=== PATIENT | male | born 1965 ===

== ENCOUNTER → 2016-12-29 | Outpatient (CLI) | payer OTHER ==
[2016-10-22 17:45] VITALS: BP 130/72
[~2016-12-29] MED LIST: ALPR0.5T PO; AMOX875T PO; DICL25CA PO; IOHEXOL 240 MG/ML 50ML VIAL. ONE; IOHEXOL 300 MG/ML 75 ML VIAL. IV ONE; TRAM100C2 PO
--- NOTE | 2016-12-29 11:24 | RAD ---
Indication lower abdominal discomfort. Axial images through the abdomen and pelvis were obtained. Both oral and IV contrast were administered. Approximately 75 cc of Omnipaque 300 was administered intravenously. No prior CT imaging of the abdomen or pelvis is available. The lung bases are clear. The liver and spleen appear essentially unremarkable. There is a probable small cyst in the liver measuring approximately 6 mm in greatest dimension. The gallbladder is grossly normal. No pancreatic adrenal or renal anomalies are seen. A few lymph nodes are seen in the retroperitoneum. These are probably incidental. A definite acute finding in the abdomen is not seen. There is moderately extensive diverticular disease associated with the sigmoid colon. Extending over approximately a 7 cm segment of the mid sigmoid colon are surrounding inflammatory changes in the mesentery. The findings are compatible with diverticulitis. An underlying mass is not seen but if colonoscopy has not been performed recently this should be considered. A discrete abscess amenable to drainage is not seen. Additional significant finding in the pelvis is not seen. There are occasional sclerotic foci in the pelvis likely reflecting bone islands. There are some degenerative changes about the left hip. AVN is not excluded. IMPRESSION: Inflammatory changes surrounding the sigmoid colon compatible with diverticulitis. If colonoscopy has not been recently performed this should be considered. PQRS Compliance Statement: One or more of the following individualized dose reduction techniques were utilized for this examination: 1. Automated exposure control 2. Adjustment of the mA and/or kV according to patient size 3. Use of iterative reconstruction technique
== END | disposition home or self-care (01) ==
LOC: CT 09:45
PROVIDERS: ATTEND Physician Assistant Medical
DX: K57.90 Diverticulosis of intestine, part unspecified, without perforation or abscess without bleeding (principal); Z87.891 Personal history of nicotine dependence
CPT/HCPCS: 74177; Q9966; Q9967

== ENCOUNTER 2017-08-17 01:25 | Inpatient (IN) | payer OTHER ==
[~2017-08-17] VITALS: Ht 180.3 cm; Wt 121.7 kg
[~2017-08-17 01:25] MED LIST changes: -IOHEXOL 240 MG/ML 50ML VIAL. ONE; -IOHEXOL 300 MG/ML 75 ML VIAL. IV ONE
--- NOTE | 2017-08-17 01:49 | ED.ADGEN ---
Past History Past Medical History: Other Past Surgical History: Other Alcohol Use: Occasionally Drug Use: Marijuana Adult General Chief Complaint Chief Complaint " I been hurting down in my gut for about 3 weeks.. now.. at first I get this recurrent abscess on my scrotum.. but they gave me Bactrim.. I took it .. and the abscess or cyst went away.. but then I started getting pain down here in my lower abd. on the Lt. ... I ve been seeing Dr. Herrmann ..up stairs.. and he said I was probably going to have to get a CT... ".." But the pain got so bad tonight...." HPI HPI Patient is a 51 year old male who presents with present with Lt lower quadrant pain has been intermittent for the last 3 weeks however the last 48 hours patient has been, persistent and not relieved. Patient denies any history of previous episodes of colitis, Crohn's, or diverticulitis. Patient has never had a CT of abdomen or colonoscopy. Today patient has been nauseated and any movement or palpation of left lower quadrant causes pain. Patient states just walking causes pain in left lower quadrant. Patient denies any history of immunosuppression. Patient denies any ingestion of bad food. Patient denies any contact with reptiles, poultry, or ill animals. No recent travel. Review of Systems Review of Systems Constitutional: Hx of fever or chills [] Eyes: Denies change in visual acuity, redness, or eye pain [] HENT: Denies nasal congestion or sore throat [] Respiratory: Denies cough or shortness of breath [] Cardiovascular: No additional information not addressed in HPI [] GI: Hx. abdominal pain, nausea. Denies, vomiting, some watery diarrhea x 3 : Denies dysuria or hematuria [] Musculoskeletal: Denies back pain or joint pain [] Integument: Denies rash or skin lesions [] Neurologic: Denies headache, focal weakness or sensory changes [] Endocrine: Denies polyuria or polydipsia [] All other systems were reviewed and found to be within normal limits, except as documented in this note. Family History Family History Non-contributory - no family hx colitis/ Crohn's Current Medications Current Medications Current Medications Medications (Trade) Dose Ordered Sig/Luis Start Time Stop Time Status Last Admin Dose Admin Albuterol Sulfate (Ventolin) 2.5 mg PRN QID PRN 08/17/17 05:00 08/17/17 22:30 DC Ceftriaxone Sodium (Rocephin Im) 1 gm 1X ONCE 08/17/17 02:15 08/17/17 02:16 DC 08/17/17 02:59 1 GM Famotidine (Pepcid Vial) 20 mg 1X ONCE 08/17/17 02:15 08/17/17 02:16 DC 08/17/17 02:59 20 MG Info (Do NOT chart on this entry -- for MONITORING) 1 each PRN DAILY PRN 08/17/17 02:15 08/17/17 22:30 DC Iohexol (Omnipaque 240 Mg/ml) 50 ml STK-MED ONCE 08/17/17 02:11 08/17/17 02:12 DC Iohexol (Omnipaque 300 Mg/ml) 75 ml 1X ONCE 08/17/17 02:15 08/17/17 02:16 DC 08/17/17 03:25 75 ML Metronidazole 100 ml @ 100 mls/hr ONCE ONCE 08/17/17 02:15 08/17/17 03:14 DC 08/17/17 02:58 100 MLS/HR Morphine Sulfate (Morphine 10mg Syringe) 10 mg PRN QID PRN 08/17/17 05:00 08/17/17 22:30 DC 08/17/17 21:41 10 MG Ondansetron HCl (Zofran) 4 mg PRN Q4HRS PRN 08/17/17 05:00 08/17/17 22:30 DC Sodium Chloride 1,000 ml @ 1,000 mls/hr Q1H 08/17/17 02:00 08/17/17 02:59 DC 08/17/17 02:58 1,000 MLS/HR See nursing for home medications Allergies Allergies Allergies Coded Allergies Type Severity Reaction Last Updated Verified No Known Drug Allergies 12/20/13 No Physical Exam Physical Exam Constitutional:in acute distress, non-toxic appearance. [] HENT: Normocephalic, atraumatic, bilateral external ears normal, oropharynx moist, no oral exudates, nose normal. [] Eyes: PERRLA, EOMI, conjunctiva normal, no discharge. [] Neck: Normal range of motion, no tenderness, supple, no stridor. [] Cardiovascular:Heart rate regular rhythm, no murmur [] Lungs & Thorax: Bilateral breath sounds clear to auscultation [] Abdomen: Bowel sounds hyperactive, soft, lower quadrant tenderness, rebound to left lower quadrant, scrotal scarring-recurrent abscess, no masses, no pulsatile masses. [] Left gluteal cellulitis Skin: Warm, dry, no erythema, no rash. [] Back: No tenderness, no CVA tenderness. [] Extremities: No tenderness, no cyanosis, no clubbing, ROM intact, no edema. Positive psoas sign and obturator sign on left Neurologic: Alert and oriented X 3, normal motor function, normal sensory function, no focal deficits noted. [] Psychologic: Affect anxious, judgement normal, mood normal. [] Current Patient Data Vital Signs Vital Signs Date Time Temp Pulse Resp B/P (MAP) Pulse Ox O2 Delivery O2 Flow Rate FiO2 08/17/17 05:00 90 16 103/56 (72) 96 Room Air 08/17/17 04:00 98.9 Lab Results Laboratory Tests Test 08/17/17 02:05 08/17/17 03:10 White Blood Count 15.0 x10^3/uL (4.0-11.0) H Red Blood Count 4.88 x10^6/uL (4.30-5.70) Hemoglobin 14.3 g/dL (13.0-17.5) Hematocrit 41.3 % (39.0-53.0) Mean Corpuscular Volume 85 fL (79-100) Mean Corpuscular Hemoglobin 29 pg (25-35) Mean Corpuscular Hemoglobin Concent 35 g/dL (31-37) Red Cell Distribution Width 13.5 % (11.5-14.5) Platelet Count 404 x10^3/uL (140-400) H Neutrophils (%) (Auto) 75 % (31-73) H Lymphocytes (%) (Auto) 12 % (24-48) L Monocytes (%) (Auto) 11 % (0-9) H Eosinophils (%) (Auto) 1 % (0-3) Basophils (%) (Auto) 1 % (0-3) Neutrophils # (Auto) 11.3 x10^3uL (1.8-7.7) H Lymphocytes # (Auto) 1.8 x10^3/uL (1.0-4.8) Monocytes # (Auto) 1.7 x10^3/uL (0.0-1.1) H Eosinophils # (Auto) 0.2 x10^3/uL (0.0-0.7) Basophils # (Auto) 0.1 x10^3/uL (0.0-0.2) Segmented Neutrophils % 74 % (35-66) H Band Neutrophils % 2 % (0-9) Lymphocytes % 14 % (24-48) L Monocytes % 7 % (0-10) Eosinophils % 2 % (0-5) Basophils % 1 % (0-3) Platelet Estimate Increased (ADEQUATE) Prothrombin Time 10.9 SEC (9.4-11.4) Prothrombin Time INR 1.1 (0.9-1.1) PTT 27 SEC (23-33) Sodium Level 137 mmol/L (136-145) Potassium Level 3.5 mmol/L (3.5-5.1) Chloride Level 101 mmol/L (98-107) Carbon Dioxide Level 27 mmol/L (21-32) Anion Gap 9 (6-14) Blood Urea Nitrogen 10 mg/dL (8-26) Creatinine 1.0 mg/dL (0.7-1.3) Estimated GFR (Cockcroft-Gault) 79.4 Glucose Level 113 mg/dL (70-99) H Calcium Level 8.8 mg/dL (8.5-10.1) Total Bilirubin 0.7 mg/dL (0.2-1.0) Direct Bilirubin 0.3 mg/dL (0.0-0.2) H Aspartate Amino Transferase (AST) 20 U/L (15-37) Alanine Aminotransferase (ALT) 28 U/L (16-63) Alkaline Phosphatase 89 U/L (46-116) Total Protein 8.1 g/dL (6.4-8.2) Albumin 2.8 g/dL (3.4-5.0) L Amylase Level 28 U/L (25-115) Lipase 80 U/L (73-393) Prostate Specific Antigen 0.29 ng/ml (0.00-4.00) Urine Collection Type Unknown Urine Color Yellow Urine Clarity Clear Urine pH 5.0 Urine Specific [place] 1.020 Urine Protein Trace (NEG-TRACE) Urine Glucose (UA) Neg mg/dL (NEG) Urine Ketones (Stick) Trace mg/dL (NEG) Urine Blood Trace (NEG) Urine Nitrite Neg (NEG) Urine Bilirubin Neg (NEG) Urine Urobilinogen Dipstick 0.2 mg/dL (0.2 mg/dL) Urine Leukocyte Esterase Neg (NEG) Urine RBC 0 /HPF (0-2) Urine WBC 1-4 /HPF (0-4) Urine Squamous Epithelial Cells Few /LPF Urine Bacteria Few /HPF (0-FEW) Urine Opiates Screen Neg (NEG) Urine Methadone Screen Neg (NEG) Urine Barbiturates Neg (NEG) Urine Phencyclidine Screen Neg (NEG) Urine Amphetamine/Methamphetamine Neg (NEG) Urine Benzodiazepines Screen Neg (NEG) Urine Cocaine Screen Neg (NEG) Urine Cannabinoids Screen Neg (NEG) Urine Ethyl Alcohol Neg (NEG) EKG EKG My interpretation EKG shows a sinus rhythm at 85 bpm. No acute morphology appreciated[] Radiology/Procedures Radiology/Procedures My interpretation of abdomen film shows no free air under the diaphragm. No acute cardiopulmonary findings. Does have a few areas of isolated bowel loops which may be findings of early ileus.[] Course & Med Decision Making Course & Med Decision Making Pertinent Labs and Imaging studies reviewed. (See chart for details) Discussed presentation, testing and treatment plan with . Currently no beds available for transfer and surgical consult. Will start antibiotics here and transfer to [facility] when bed available for surgical consult and possible surgery. [] Final Impression Final Impression 1. Abdomen pain[] 2. Leukocytosis-with elevated segs 3. Left gluteal cellulitis 4. Diverticulitis with abscess formation 5. Dehydration Problems: Dragon Disclaimer Dragon Disclaimer This electronic medical record was generated, in whole or in part, using a voice recognition dictation system. OSCAR CLARK MD Aug 17, 2017 01:49
[2017-08-17] MEDS ORDERED: IV NORMAL SALINE 1,000ML 1,000 ML IV SCH (02:00)
[2017-08-17] MEDS ORDERED: IOHEXOL 240 MG/ML 50ML VIAL. ONE (02:11)
[2017-08-17] MEDS ORDERED: FAMOTIDINE 20 MG/2 ML VIAL IVP ONE (02:15)
[2017-08-17] MEDS ORDERED: ONDANSETRON PF 4 MG/2 ML VIAL. IV ONE (02:15)
[2017-08-17] MEDS ORDERED: CONTRAST GIVEN MC PRN (02:15)
[2017-08-17] MEDS ORDERED: MORPHINE SULFATE 10 MG/ML SYRINGE. SQ ONE (02:15)
[2017-08-17] MEDS ORDERED: cefTRIAXone IM 1 GM VIAL IM ONE (02:15)
[2017-08-17] MEDS ORDERED: IOHEXOL 300 MG/ML 75 ML VIAL. IV ONE (02:15)
--- NOTE | 2017-08-17 02:24 | EKG ---
[address] [address] Test Date: 2017-08-17 Test Time: 02:18:00 Pat Name: PITA DSOUZA Department: Room: Gender: M Package Clerk: NIK : [id number] Requested By: OSCAR CLARK Order Number: [id number] Reading MD: Shaheen Sanchez MD Measurements Intervals [employer] Rate: 85 P: 48 CT: 164 QRS: 15 QRSD: 86 T: 27 QT: 342 QTc: 412 Interpretive Statements SINUS RHYTHM Electronically Signed On 08-18-2017 9:59:15 [employer] by Shaheen Sanchez MD
[2017-08-17 02:31] LABS: BASO # 0.1 x10^3/uL (0.0-0.2); BASO % 1 % (0-3); EOS # 0.2 x10^3/uL (0.0-0.7); EOS % 1 % (0-3); HEMATOCRIT 41.3 % (39.0-53.0); HEMOGLOBIN 14.3 g/dL (13.0-17.5); LYMPH # 1.8 x10^3/uL (1.0-4.8); LYMPH % 12 % (24-48); MEAN CORPUSCULAR HEMOGLOBIN 29 pg (25-35); MEAN CORPUSCULAR HGB CONC 35 g/dL (31-37); MEAN CORPUSCULAR VOLUME 85 fL (79-100); MONO # 1.7 x10^3/uL (0.0-1.1); MONO % 11 % (0-9); NEUT # 11.3 x10^3uL (1.8-7.7); NEUT % 75 % (31-73); PLATELET COUNT 404 x10^3/uL (140-400); RED BLOOD COUNT 4.88 x10^6/uL (4.30-5.70); RED CELL DISTRIBUTION WIDTH 13.5 % (11.5-14.5)
[2017-08-17 02:47] LABS: % BANDS 2 % (0-9); % BASOS 1 % (0-3); % EOS 2 % (0-5); % LYMPHS 14 % (24-48); % MONOS 7 % (0-10); % SEGS 74 % (35-66); PLT ESTIMATE INCREASED (ADEQUATE)
[2017-08-17 02:51] LABS: ALBUMIN 2.8 g/dL (3.4-5.0); CALCIUM 8.8 mg/dL (8.5-10.1); DIRECT BILIRUBIN 0.3 mg/dL (0.0-0.2); GFR 79.4; POTASSIUM 3.5 mmol/L (3.5-5.1); TOTAL BILIRUBIN 0.7 mg/dL (0.2-1.0); TOTAL PROTEIN 8.1 g/dL (6.4-8.2)
[2017-08-17 03:36] LABS: BACTERIA,URINE FEW /HPF (0-FEW); BILIRUBIN,URINE NEG (NEG); CLARITY,URINE CLEAR; COLOR,URINE YELLOW; GLUCOSE,URINE NEG (NEG); NITRITE,URINE NEG (NEG); RBC,URINE 0 /HPF (0-2); SQUAMOUS EPITHELIAL CELL,UR FEW /LPF; UROBILINOGEN,URINE 0.2 mg/dL (0.2 mg/dL)
[2017-08-17 03:45] LABS: BARBITURATES NEG (NEG); BENZODIAZEPINES NEG (NEG); CANNABINOIDS NEG (NEG); COCAINE NEG (NEG); METHADONE NEG (NEG); OPIATES NEG (NEG); PHENCYCLIDINE NEG (NEG)
[2017-08-17 03:46] LABS: AMPHETAMINE/METHAMPHETAMINE NEG (NEG)
--- NOTE | 2017-08-17 04:23 | RAD ---
EXAM: CT ABDOMEN/PELVIS WITH CONTRAST. HISTORY: Lower abdominal pain and bilateral flank pain. TECHNIQUE: Computed tomography of the abdomen and pelvis was performed after the intravenous administration of 75 mL Omnipaque 300. COMPARISON: December 29, 2016. FINDINGS: Lung windows through the visualized portions of the bases reveal mild atelectasis. Bone windows reveal no suspicious lesions. There is a mild chronic superior endplate compression deformity at T12. There is wall thickening and surrounding inflammatory change about the sigmoid colon consistent with diverticulitis. A fluid collection extends inferiorly in the pelvis along the rectum, concerning for an abscess in this setting. It measures 7.5 x 6.9 cm transaxially and approximately 9 cm craniocaudally. A second irregular collection extends superiorly along the left aspect of the sigmoid, just anterior to the iliac vessels. It measures 6.3 x 3.5 cm transaxially and 7.7 cm craniocaudally. It contains a small amount of gas. There is no free perforation. There is no obstruction. There is diffuse bladder wall thickening. There is no hydronephrosis. The kidneys are unremarkable. The appendix is not inflamed. Mild diffuse hepatic steatosis is suspected. There is a small cyst or hemangioma superiorly in hepatic segment 4A. The pancreas, adrenal glands, gallbladder and spleen are unremarkable. A small umbilical hernia contains only fat. There is subcutaneous stranding along the left aspect of the gluteal cleft suggesting cellulitis. This is incompletely included. No drainable collection is present at this site. IMPRESSION: 1. Findings consistent with acute sigmoid diverticulitis. 2 fluid collections extending inferiorly along the rectum, and superiorly just anterior to the left iliac vessels are consistent with abscesses and measure approximately 8 cm as above. Correlate with current colonoscopic results to exclude underlying lesion. 2. Subcutaneous stranding along the left aspect of the gluteal cleft is incompletely visualized but suggests cellulitis. Correlate with physical examination. 3. Diffuse bladder wall thickening indicates chronic outlet obstruction or inflammation. Correlate with urinalysis. 4. Mild diffuse hepatic steatosis. 5. Small hiatal and umbilical hernias. *One or more of the following individualized dose reduction techniques were utilized for this examination: 1. Automated exposure control. 2. Adjustment of the mA and/or kV according to patient size. 3. Use of iterative reconstruction technique. Electronically signed by: Darrion Fitzgerald MD (08/17/2017 4:20 AM) [id number]
[2017-08-17] MEDS ORDERED: ALBUTEROL SULFATE 2.5 MG/3 ML NEBU. NEB PRN (05:00)
[2017-08-17] MEDS ORDERED: ONDANSETRON PF 4 MG/2 ML VIAL. IV PRN (05:00)
[2017-08-17 05:40] VITALS: BP 130/76
[2017-08-17 05:45] VITALS: BP 130/76
[2017-08-17] MEDS: MORPHINE SULFATE 10 MG/ML SYRINGE. SQ PRN ×3 (06:06→21:41)
[2017-08-17] MEDS: IV RINGERS SOLUTION,LACTATED 1,000 ML IV SCH ×2 (06:15→16:15)
--- NOTE | 2017-08-17 07:16 | RAD ---
Acute abdomen series with chest, 3 views, 08/17/2017: History: Abdominal pain Gas is present in large and small bowel without significant bowel distention. There are several small scattered air-fluid levels. No free air is evident in the abdomen. No organomegaly is seen. The heart size is normal. The lungs are clear. There is no evidence of pleural fluid. IMPRESSION: Small scattered air-fluid levels in the GI tract suggests a mild nonspecific ileus.
[2017-08-17] MEDS: IPRATRPIUM/ALBUTEROL 0.5/2.5MG 3 ML NEBU. NEB SCH ×4 (08:00→21:36)
[2017-08-17 10:37] VITALS: BP 126/79
[2017-08-17 14:42] VITALS: BP 111/82
[2017-08-17] MEDS ORDERED: cefTRIAXone IV Push 1 GM VIAL. IVP SCH (18:00)
--- NOTE | 2017-08-17 18:23 | SSS ---
ADMIT DATE: 08/17/2017 HISTORY OF PRESENT ILLNESS: The patient is a 51-year-old male patient who basically came to the Emergency Room complaining of pain, mostly in the left lower quadrant that has been going on for 3 weeks. Initially, he has a recurrent abscess in his scrotum, was treated with Bactrim. The abscess and the cyst went away, but he started getting pain down in his left lower quadrant. Apparently, he was seen by his primary care physician and was treated with laxatives and probiotic without any improvement in his abdominal pain. So, he came to the Emergency Room, where he was evaluated extensively and apparently, was found to have leukocytosis and a CT scan of the abdomen showed that he has findings consistent with acute sigmoid diverticulitis, fluid collection extending inferiorly along the rectum and superiorly just anterior to the left iliac vessels are consistent with abscesses and measures approximately 8 cm above, correlate with current colonoscopic results exclude underlying lesion. He has subcutaneous stranding along the left aspect of the gluteal cleft, it was incompletely visualized to suggest cellulitis, correlate with physical examination. Diffused bladder wall thickening indicates chronic outlet obstruction or inflammation, correlate with urinalysis. Mild diffuse hepatic steatosis and small umbilical hernia, and given the findings, the patient could be transferred to [facility] to continue the IV antibiotic and to consult the surgical team as well as the Interventional Radiologist as he might require an ultrasound or CT scan guided drainage of these abscesses. PAST MEDICAL HISTORY: Significant for hypertension. PAST SURGICAL HISTORY: Significant for tonsillectomy, bilateral pilonidal cyst removal x 3. ALLERGIES: He has no known drug allergies. MEDICATIONS: He is on no medication other than what was given to him from his primary care physician including Linzess, probiotic, and a few weeks ago Bactrim. FAMILY HISTORY: He has two brothers who are younger and healthy. Father at the age of 72 because of complication of diabetes and peripheral vascular disease. Mother is alive at the age of 74 and healthy. SOCIAL HISTORY: He is , has no children. Smokes 1 pack of cigarettes a day. He does not drink or use any illicit drug. He works in [employer]. REVIEW OF SYSTEMS: The patient denied any blurring of vision, cataract, glaucoma or macular degeneration. Denied any earache, tinnitus or sensorineural deafness. Denied any nosebleeds, stuffy nose or postnasal drip. Denied any sore throat, sore tongue, toothache, hoarseness of voice or difficulty swallowing. Denied any nausea, vomiting; however, he did complain of alternating diarrhea or constipation. Denied any dysuria, frequency, hematuria. Denied any chest pain, shortness of breath, orthopnea, paroxysmal nocturnal dyspnea. Denied any cough, phlegm or hemoptysis. Denied any chills, rigors, or fever. PHYSICAL EXAMINATION: GENERAL: When I examined him, he was resting slightly propped up in bed, in no apparent respiratory distress. There is no pallor, jaundice, cyanosis, or thyromegaly. No jugular venous distention. No lower limb edema. VITAL SIGNS: Her heart rate was 90, blood pressure was 111/82, temperature was 98.7, respiratory rate was 20, and oxygen saturation was 94% on room air. HEAD, EYES, EARS, NOSE, AND THROAT: Showed normocephalic, atraumatic. NECK: Supple. HEART: Showed normal first and second heart sounds. No gallop, rub or murmur. CHEST: Clear to auscultation. No crepitation or rhonchi. ABDOMEN: Distended, soft with tenderness mostly in the left lower quadrant. There is no guarding or rigidity. No organomegaly. Hernial orifices intact. Bowel sounds normal. NEUROLOGIC: He was awake, alert, responding appropriately. Cranial nerves intact. EXTREMITIES: He moves extremities without difficulty. He ambulates without assistance or assistive devices. LABORATORY DATA: Showed a white cell count of 15,000, hemoglobin 14, hematocrit 41, MCV 85, and platelet count of 404,000. His prothrombin time was 10.9, INR 1.1, aPTT was 27. His serum sodium was 137, potassium 3.5, chloride 101, bicarbonate 27, anion gap of 9, BUN 10, creatinine 1, estimated GFR was 79 mL per minute, his glucose 113, calcium was 8.8. Total bilirubin, AST, ALT, alkaline phosphatase were normal. Total protein was 8.1, albumin 2.8. AST, serum amylase, and lipase were normal. Urinalysis was essentially unremarkable and urine toxicology was negative. 1. The CT scan of the abdomen and pelvis showed finding consistent with acute sigmoid diverticulitis. 2. Fluid collection extending inferiorly along the rectum and superiorly just anterior to the left iliac vessels are consistent with abscess and measured approximately 8 cm above. He has subcutaneous stranding along the left aspect of the gluteal cleft, it is incompletely visualized with change suggest cellulitis, correlate with physical examination. 3. Diffuse bladder wall thickening indicates chronic outlet obstruction or inflammation, correlate with urinalysis, has mild diffuse hepatic steatosis. ASSESSMENT AND PLAN: The patient will be transferred to [facility]. We will consult the surgical team. The Infectious Disease team as well as the Interventional Radiologist thought he might require a CT scan-guided drainage of the abdominal abscesses. MELANY KENRS MD DR: SANDHYA/ivis JOB#: [id number] / [id number]
[2017-08-17 19:38] VITALS: BP 111/58
[2017-08-17] MEDS ORDERED: NICOTINE 21MG PATCH. TD SCH (20:00)
== END 2017-08-17 22:29 | disposition short-term general hospital (02) | DRG 392 ==
LOC: ER 01:25 → 1 SOUTH 05:24
PROVIDERS: ADMIT Internal Medicine; ATTEND Internal Medicine
DX: K57.00 Diverticulitis of small intestine with perforation and abscess without bleeding (principal); K76.0 Fatty (change of) liver, not elsewhere classified; E86.0 Dehydration; L03.317 Cellulitis of buttock; F12.90 Cannabis use, unspecified, uncomplicated; F17.210 Nicotine dependence, cigarettes, uncomplicated; I10 Essential (primary) hypertension; K42.9 Umbilical hernia without obstruction or gangrene; K59.00 Constipation, unspecified; Z90.89 Acquired absence of other organs; Z83.3 Family history of diabetes mellitus
CPT/HCPCS: 36415; 74022; 74177; 80048; 80076; 80307; 81001; 82150; 83690; 85007; 85025; 85610; 85730; 93005; 94640; 96365; 96372; 96375; G0103; G0238; J0696; J2270; J2405; J3490; J7120; J7620; Q9967; S0028; 99285-25; G0479; J7030